=== PATIENT | female | born 1990 | race Caucasian/White ===

== ENCOUNTER 2017-08-24 15:53 | Emergency (ER) | payer OTHER ==
[~2017-08-24] VITALS: Ht 165.1 cm; Wt 61.2 kg
[~2017-08-24 15:53] MED LIST: AMOXICILLIN 50500 MG PO; AMOXICILLIN500 M1 PO; FLAGYL500 MG PO; FOLIC ACID1 MG PO; IBUPROFEN 600600 M1 PO; IBUPROFEN 800800 MG PO; KEFLEX500 M1 PO; KEFLEX500 MG PO; MACROBID 100 M100 M1 PO; MEDROLDOSEPACK PO; NOHOMEMEDICATIONS; NORCO 5-325 TA1 EACH PO; ONDANSETRON HCL4 M2 PO; PRENATAL; PROAIR RESPICL90 MCG IH; PROAIR RESPICL90 MCG INH; PROGESTER VG; PROMETHAZINE V473 ML PO; PROMETHAZINE-D120 ML PO; TESSALON PERLE100 MG PO; UNICOMPLEX M TA1 TA1 PO; VENTOLIN HFA 1818 GM INH; ZOFRAN ODT4 MG PO; ZOFRAN4 MG PO; ZPAK PO
[2017-08-24] MEDS ORDERED: NOHOMEMEDICATIONS (16:14)
[2017-08-24 16:17] LABS: URINE BILIRUBIN NEGATIVE (Negative); URINE BLOOD 2+ (Negative); URINE CLARITY CLEAR; URINE COLOR YELLOW; URINE GLUCOSE-RANDOM NEGATIVE (Negative); URINE KETONES NEGATIVE (Negative); URINE LEUKOCYTES-REFLEX 1+ (Negative); URINE NITRITE-REFLEX NEGATIVE (Negative); URINE PROTEIN NEGATIVE (Negative); URINE UROBILINOGEN 0.2 E.U./dl (0.2-1.0)
[2017-08-24 16:24] LABS: CASTS None Seen /LPF (None Seen); CRYSTALS None Seen /LPF (None Seen); MUCUS 0-3 Light strn/LPF (None Seen); SQUAMOUS >10 Many /LPF (0-3)
[2017-08-24 16:25] LABS: BACTERIA-REFLEX 1-9 Few /HPF (None Seen); URINE RBC 0-2 Rare /HPF (0-2); URINE WBC-REFLEX 0-5 Rare /HPF (0-5)
[2017-08-24 16:28] LABS: ABSOLUTE BASOPHILS 0.1 thou/uL (0.0-0.2); ABSOLUTE EOSINOPHILS 0.1 thou/uL (0.0-0.7); ABSOLUTE LYMPHOCYTES 2.5 thou/uL (0.8-5.3); ABSOLUTE MONOCYTES 0.3 thou/uL (0.0-1.2); ABSOLUTE NEUTROPHILS 4.1 thou/uL (1.6-8.1); BASOPHILS 1.2 %; EOSINOPHILS 1.1 %; HEMOGLOBIN 15.2 gm/dL (12.0-15.0); LYMPHOCYTES 35.3 %; MCHC 32.4 g/dL (28.0-37.0); MCV 89.3 fL (80.0-100.0); MONOCYTES 4.2 %; MPV 8.4 fl. (7.2-11.1); NUCLEATED RBCS 0 /100WBC; PLATELET COUNT* 270 thou/uL (150-400); POLYS 58.2 %; RBC 5.26 mil/uL (4.20-5.00); RDW-CV 13.3 % (10.5-14.5); WBC 7.1 thou/uL (4.0-11.0)
[2017-08-24 16:35] LABS: CALCIUM 9.3 mg/dL (8.5-10.1); CREATININE 0.8 mg/dL (0.6-1.3); POTASSIUM 3.7 mmol/L (3.5-5.1)
[2017-08-24 16:39] LABS: ALBUMIN 4.1 g/dL (3.4-5.0); TOTAL BILIRUBIN 0.3 mg/dL (<0.1-1.0); TOTAL PROTEIN 7.6 g/dL (6.4-8.2)
[2017-08-24] MEDS ORDERED: VISTARIL 25 MG25 M1 PO (17:05)
[2017-08-24] MEDS ORDERED: ZOFRAN ODT4 MG PO (17:05)
[2017-08-24 17:20] VITALS: BP 103/72
== END 2017-08-24 17:27 | disposition home or self-care (01) ==
LOC: M.ERS 15:53
PROVIDERS: Nurse Practitioner Family
DX: R11.2 Nausea with vomiting, unspecified (principal); F41.9 Anxiety disorder, unspecified; F31.9 Bipolar disorder, unspecified; Z86.2 Personal history of diseases of the blood and blood-forming organs and certain disorders involving the immune mechanism; Z98.890 Other specified postprocedural states; Z91.040 Latex allergy status; Z91.013 Allergy to seafood

== ENCOUNTER 2017-10-15 17:52 | Emergency (ER) | payer OTHER ==
[~2017-10-15] VITALS: Ht 165.1 cm; Wt 59.0 kg
[~2017-10-15 17:52] MED LIST changes: +VISTARIL 25 MG25 M1 PO
[2017-10-15] MEDS ORDERED: PRENATAL 19 CH1 EAC1 PO (18:12)
[2017-10-15] MEDS ORDERED: TRAMADOL 50 MG50 MG PO (18:47)
[2017-10-15 19:16] VITALS: BP 124/65
== END 2017-10-15 19:17 | disposition home or self-care (01) ==
LOC: M.ERS 17:52
DX: S93.692A Other sprain of left foot, initial encounter (principal); F41.9 Anxiety disorder, unspecified; F31.9 Bipolar disorder, unspecified; F17.200 Nicotine dependence, unspecified, uncomplicated; Z86.2 Personal history of diseases of the blood and blood-forming organs and certain disorders involving the immune mechanism; Z98.890 Other specified postprocedural states; Z91.040 Latex allergy status; Z91.013 Allergy to seafood; W22.8XXA Striking against or struck by other objects, initial encounter; Y93.89 Activity, other specified; Y92.89 Other specified places as the place of occurrence of the external cause; Y99.8 Other external cause status

== ENCOUNTER 2017-11-10 09:36 | Emergency (ER) | payer OTHER ==
[~2017-11-10] VITALS: Ht 167.6 cm; Wt 59.0 kg
[~2017-11-10 09:36] MED LIST changes: +PRENATAL 19 CH1 EAC1 PO; +TRAMADOL 50 MG50 MG PO
[2017-11-10 10:03] LABS: URINE BILIRUBIN NEGATIVE (Negative); URINE BLOOD 3+ (Negative); URINE CLARITY CLEAR; URINE COLOR YELLOW; URINE GLUCOSE-RANDOM NEGATIVE (Negative); URINE KETONES NEGATIVE (Negative); URINE LEUKOCYTES-REFLEX 1+ (Negative); URINE NITRITE-REFLEX NEGATIVE (Negative); URINE PROTEIN NEGATIVE (Negative); URINE UROBILINOGEN 0.2 E.U./dl (0.2-1.0)
[2017-11-10 10:09] LABS: MUCUS None Seen strn/LPF (None Seen); SQUAMOUS >10 Many /LPF (0-3); URINE RBC >20 Many /HPF (0-2); URINE WBC-REFLEX 6-15 Few /HPF (0-5)
[2017-11-10 10:10] LABS: CASTS None Seen /LPF (None Seen); CRYSTALS None Seen /LPF (None Seen)
[2017-11-10 10:51] LABS: ABSOLUTE BASOPHILS 0.1 thou/uL (0.0-0.2); ABSOLUTE EOSINOPHILS 0.1 thou/uL (0.0-0.7); ABSOLUTE LYMPHOCYTES 2.1 thou/uL (0.8-5.3); ABSOLUTE MONOCYTES 0.3 thou/uL (0.0-1.2); BASOPHILS 1.2 %; EOSINOPHILS 1.7 %; HEMATOCRIT 41.9 % (37.0-47.0); HEMOGLOBIN 14.3 gm/dL (12.0-15.0); LYMPHOCYTES 37.5 %; MCHC 34.1 g/dL (28.0-37.0); MONOCYTES 6.1 %; MPV 8.2 fl. (7.2-11.1); NUCLEATED RBCS 0 /100WBC; PLATELET COUNT* 254 thou/uL (150-400); POLYS 53.5 %; RBC 4.92 mil/uL (4.20-5.00); RDW-CV 12.7 % (10.5-14.5); WBC 5.6 thou/uL (4.0-11.0)
[2017-11-10 10:54] LABS: CALCIUM 9.3 mg/dL (8.5-10.1); CREATININE 0.8 mg/dL (0.6-1.3); POTASSIUM 3.5 mmol/L (3.5-5.1)
[2017-11-10 10:59] LABS: ALBUMIN 3.8 g/dL (3.4-5.0); TOTAL BILIRUBIN 0.4 mg/dL (<0.1-1.0); TOTAL PROTEIN 7.3 g/dL (6.4-8.2)
[2017-11-10 11:14] LABS: INFLUENZA A ANTIGEN None Detected (None Detect); INFLUENZA B ANTIGEN None Detected (None Detect)
[2017-11-10] MEDS ORDERED: BACTRIM DS TAB1 EACH PO (13:26)
[2017-11-10 13:27] VITALS: BP 91/52
--- NOTE | 2017-11-10 16:41 | EKG ---
[place] [address] ELECTROCARDIOGRAM REPORT Name: LAURA ELIAS Room: [facility]#: [id number] Admission: 11/10/17 Attend Phys: Discharge: 11/10/17 Date of : [birth year] Report #: [id number] THIS REPORT FOR: //name// [facility] ED Test Date: 2017-11-10 Test Time: 09:41:49 Pat Name: LAURA ELIAS Department: Room: Gender: F Credit Risk Review Officer: UNKNOWN : 1990 Requested By: Candelaria Duenas Order Number: [id number] MD: Alfonso Abdullahi Measurements Intervals [place] Rate: 113 P: 79 [place]: 125 QRS: 64 QRSD: 88 T: 10 QT: 331 QTc: 454 Interpretive Statements Sinus tachycardia Minimal ST depression, inferior leads Compared to ECG 09/30/2016 13:55:19 ST (T wave) deviation now present Electronically Signed On 11-10-2017 16:41:12 CDT by Alfonso Abdullahi [email or web address] <ELECTRONICALLY SIGNED> By: Alfonso Abdullahi MD, [facility] 11/10/17 1641 0 0 Alfonso Abdullahi MD, FACC /EPI
== END 2017-11-10 13:28 | disposition home or self-care (01) ==
LOC: M.ERS 09:36
PROVIDERS: Personal Emergency Response Attendant
DX: E86.0 Dehydration (principal); N39.0 Urinary tract infection, site not specified; F41.9 Anxiety disorder, unspecified; F31.9 Bipolar disorder, unspecified; F17.210 Nicotine dependence, cigarettes, uncomplicated; Z86.2 Personal history of diseases of the blood and blood-forming organs and certain disorders involving the immune mechanism; Z98.890 Other specified postprocedural states; Z91.040 Latex allergy status; Z91.030 Bee allergy status; Z88.8 Allergy status to other drugs, medicaments and biological substances

== ENCOUNTER 2018-02-15 12:25 | Emergency (ER) | payer OTHER ==
[~2018-02-15] VITALS: Ht 165.1 cm; Wt 59.0 kg
[~2018-02-15 12:25] MED LIST changes: +BACTRIM DS TAB1 EACH PO
[2018-02-15 12:55] LABS: URINE BILIRUBIN NEGATIVE (Negative); URINE BLOOD NEGATIVE (Negative); URINE CLARITY CLEAR; URINE COLOR YELLOW; URINE GLUCOSE-RANDOM NEGATIVE (Negative); URINE KETONES NEGATIVE (Negative); URINE LEUKOCYTES-REFLEX 1+ (Negative); URINE NITRITE-REFLEX NEGATIVE (Negative); URINE PROTEIN NEGATIVE (Negative); URINE UROBILINOGEN 0.2 E.U./dl (0.2-1.0)
[2018-02-15 13:06] LABS: ABSOLUTE BASOPHILS 0.1 thou/uL (0.0-0.2); ABSOLUTE EOSINOPHILS 0.1 thou/uL (0.0-0.7); ABSOLUTE LYMPHOCYTES 2.6 thou/uL (0.8-5.3); ABSOLUTE MONOCYTES 0.5 thou/uL (0.0-1.2); ABSOLUTE NEUTROPHILS 4.5 thou/uL (1.6-8.1); BASOPHILS 0.8 %; EOSINOPHILS 1.1 %; HEMATOCRIT 42.2 % (37.0-47.0); HEMOGLOBIN 14.4 gm/dL (12.0-15.0); LYMPHOCYTES 33.2 %; MCHC 34.1 g/dL (28.0-37.0); MONOCYTES 6.6 %; MPV 7.9 fl. (7.2-11.1); NUCLEATED RBCS 0 /100WBC; PLATELET COUNT* 241 thou/uL (150-400); POLYS 58.3 %; RBC 4.96 mil/uL (4.20-5.00); RDW-CV 12.7 % (10.5-14.5); WBC 7.7 thou/uL (4.0-11.0)
[2018-02-15 13:12] LABS: CREATININE 0.8 mg/dL (0.6-1.3); POTASSIUM 3.4 mmol/L (3.5-5.1)
[2018-02-15 13:16] LABS: BACTERIA-REFLEX 1-9 Few /HPF (None Seen); CASTS None Seen /LPF (None Seen); CRYSTALS None Seen /LPF (None Seen); URINE RBC 3-10 Few /HPF (0-2); URINE WBC-REFLEX 0-5 Rare /HPF (0-5)
[2018-02-15 13:17] LABS: ALBUMIN 3.7 g/dL (3.4-5.0); TOTAL BILIRUBIN 0.3 mg/dL (<0.1-1.0)
[2018-02-15 13:33] LABS: SQUAMOUS 4-10 Moderate /LPF (0-3)
[2018-02-15 14:10] VITALS: BP 103/72
== END 2018-02-15 14:11 | disposition home or self-care (01) ==
LOC: M.ERS 12:25
PROVIDERS: Nurse Practitioner Family
DX: Z32.02 Encounter for pregnancy test, result negative (principal); Z71.1 Person with feared health complaint in whom no diagnosis is made; F31.9 Bipolar disorder, unspecified; F41.9 Anxiety disorder, unspecified; F17.210 Nicotine dependence, cigarettes, uncomplicated; Z91.040 Latex allergy status; Z91.030 Bee allergy status; Z91.018 Allergy to other foods

== ENCOUNTER 2018-09-29 12:15 | Emergency (ER) | payer OTHER ==
[~2018-09-29] VITALS: Ht 165.1 cm; Wt 65.8 kg
[2018-09-29 12:51] LABS: URINE BILIRUBIN NEGATIVE (Negative); URINE BLOOD NEGATIVE (Negative); URINE CLARITY CLEAR; URINE COLOR YELLOW; URINE GLUCOSE-RANDOM NEGATIVE (Negative); URINE KETONES NEGATIVE (Negative); URINE LEUKOCYTES-REFLEX NEGATIVE (Negative); URINE NITRITE-REFLEX NEGATIVE (Negative); URINE PROTEIN NEGATIVE (Negative); URINE SPECIFIC GRAVITY 1.015 (1.005-1.030); URINE UROBILINOGEN 0.2 E.U./dl (0.2-1.0)
[2018-09-29 12:51] LABS: ABSOLUTE BASOPHILS 0.1 thou/uL (0.0-0.2); ABSOLUTE EOSINOPHILS 0.1 thou/uL (0.0-0.7); ABSOLUTE LYMPHOCYTES 2.1 thou/uL (0.8-5.3); ABSOLUTE MONOCYTES 0.4 thou/uL (0.0-1.2); ABSOLUTE NEUTROPHILS 5.2 thou/uL (1.6-8.1); EOSINOPHILS 0.9 %; HEMATOCRIT 43.5 % (37.0-47.0); HEMOGLOBIN 14.9 gm/dL (12.0-15.0); LYMPHOCYTES 26.7 %; MCH 28.7 pg (26.0-34.0); MCHC 34.2 g/dL (28.0-37.0); MCV 83.8 fL (80.0-100.0); MONOCYTES 4.8 %; MPV 8.3 fl. (7.2-11.1); NUCLEATED RBCS 0 /100WBC; PLATELET COUNT* 270 thou/uL (150-400); POLYS 66.6 %; RDW-CV 12.8 % (10.5-14.5); WBC 7.9 thou/uL (4.0-11.0)
[2018-09-29 12:59] LABS: APTT 28.5 Seconds (25.0-31.3); PROTIME 10.1 Seconds (9.20-11.50)
[2018-09-29 13:02] LABS: ALBUMIN 4.2 g/dL (3.4-5.0); CALCIUM 9.5 mg/dL (8.5-10.1); CREATININE 0.9 mg/dL (0.6-1.3); POTASSIUM 3.6 mmol/L (3.5-5.1); TOTAL BILIRUBIN 0.4 mg/dL (<0.1-1.0)
[2018-09-29] MEDS ORDERED: ONDANSETRON HCL4 M2 PO (14:20)
[2018-09-29] MEDS ORDERED: OMEPRAZOLE 20 M20 M1 PO (14:21)
[2018-09-29 14:41] VITALS: BP 119/70
== END 2018-09-29 14:41 | disposition home or self-care (01) ==
LOC: M.ERS 12:15
PROVIDERS: Nurse Practitioner Family
DX: R10.32 Left lower quadrant pain (principal); R11.2 Nausea with vomiting, unspecified; F41.9 Anxiety disorder, unspecified; F31.9 Bipolar disorder, unspecified; F17.210 Nicotine dependence, cigarettes, uncomplicated; Z86.2 Personal history of diseases of the blood and blood-forming organs and certain disorders involving the immune mechanism; Z91.040 Latex allergy status; Z91.030 Bee allergy status; Z91.018 Allergy to other foods; Z88.8 Allergy status to other drugs, medicaments and biological substances; Z98.890 Other specified postprocedural states

== ENCOUNTER 2019-04-26 09:30 | Emergency (ER) | payer OTHER ==
[~2019-04-26] VITALS: Ht 165.1 cm; Wt 70.8 kg
[~2019-04-26 09:30] MED LIST changes: +OMEPRAZOLE 20 M20 M1 PO
[2019-04-26 10:25] LABS: URINE BILIRUBIN NEGATIVE (Negative); URINE BLOOD NEGATIVE (Negative); URINE CLARITY CLEAR; URINE COLOR YELLOW; URINE GLUCOSE-RANDOM NEGATIVE (Negative); URINE KETONES NEGATIVE (Negative); URINE LEUKOCYTES-REFLEX NEGATIVE (Negative); URINE NITRITE-REFLEX NEGATIVE (Negative); URINE PROTEIN NEGATIVE (Negative); URINE SPECIFIC GRAVITY 1.015 (1.005-1.030); URINE UROBILINOGEN 0.2 E.U./dl (0.2-1.0)
[2019-04-26 10:46] LABS: AMP/METHAMP Negative (Negative); BARBITURATES Negative (Negative); BENZODIAZEPINES Negative (Negative); COCAINE Negative (Negative); METHADONE Negative (Negative); OPIATES Negative (Negative); PCP Negative (Negative); THC POSITIVE (Negative)
[2019-04-26 10:56] LABS: ABSOLUTE BASOPHILS 0.1 thou/uL (0.0-0.2); ABSOLUTE EOSINOPHILS 0.1 thou/uL (0.0-0.7); ABSOLUTE LYMPHOCYTES 2.2 thou/uL (0.8-5.3); ABSOLUTE MONOCYTES 0.4 thou/uL (0.0-1.2); BASOPHILS 1.5 %; EOSINOPHILS 2.2 %; HEMATOCRIT 41.6 % (37.0-47.0); HEMOGLOBIN 14.3 gm/dL (12.0-15.0); LYMPHOCYTES 38.2 %; MCHC 34.4 g/dL (28.0-37.0); MCV 84.1 fL (80.0-100.0); MONOCYTES 6.5 %; MPV 7.8 fl. (7.2-11.1); NUCLEATED RBCS 0 /100WBC; PLATELET COUNT* 230 thou/uL (150-400); POLYS 51.6 %; RBC 4.94 mil/uL (4.20-5.00); RDW-CV 12.6 % (10.5-14.5); WBC 5.7 thou/uL (4.0-11.0)
[2019-04-26 11:27] LABS: CALCIUM 8.8 mg/dL (8.5-10.1); CREATININE 0.8 mg/dL (0.6-1.3); POTASSIUM 4.3 mmol/L (3.5-5.1)
[2019-04-26 11:29] LABS: ALBUMIN 3.6 g/dL (3.4-5.0); TOTAL BILIRUBIN 0.2 mg/dL (<0.1-1.0); TOTAL PROTEIN 6.7 g/dL (6.4-8.2)
[2019-04-26] MEDS ORDERED: OMEPRAZOLE 20 M20 M1 PO (12:32)
[2019-04-26] MEDS ORDERED: PEPCID20 MG PO (12:32)
[2019-04-26 12:48] VITALS: BP 121/80
--- NOTE | 2019-04-26 16:57 | EKG ---
[place] [address] ELECTROCARDIOGRAM REPORT Name: LAURA ELIAS Room: [facility]#: [id number] Admission: 04/26/19 Attend Phys: Discharge: 04/26/19 Date of : [birth year] Report #: [id number] THIS REPORT FOR: //name// [facility] ED Test Date: 2019-04-26 Test Time: 11:20:12 Pat Name: LAURA ELIAS Department: Room: Gender: F [employer]: : 1990 Requested By: Watson Burleson Order Number: [id number] MD: Alfonso Abdullaih Measurements Intervals [place] Rate: 78 P: 69 NC: 130 QRS: 61 QRSD: 84 T: 33 QT: 379 QTc: 432 Interpretive Statements Sinus rhythm Compared to ECG 11/10/2017 09:41:49 Sinus tachycardia no longer present ST (T wave) deviation no longer present Electronically Signed On 04-26-2019 16:57:02 CDT by Alfonso Abdullahi [email or web address] <ELECTRONICALLY SIGNED> By: Alfonso Abdullahi MD, [facility] 04/26/19 1657 1120 1120 Alfonso Abdullahi MD, FAC /EPI
== END 2019-04-26 12:50 | disposition home or self-care (01) ==
LOC: M.ERS 09:30
PROVIDERS: Physician Assistant
DX: R11.2 Nausea with vomiting, unspecified (principal); R55 Syncope and collapse; F31.9 Bipolar disorder, unspecified; F41.9 Anxiety disorder, unspecified; F17.210 Nicotine dependence, cigarettes, uncomplicated; Z91.040 Latex allergy status; Z88.8 Allergy status to other drugs, medicaments and biological substances; Z91.030 Bee allergy status; Z98.890 Other specified postprocedural states; Z98.51 Tubal ligation status; Z86.2 Personal history of diseases of the blood and blood-forming organs and certain disorders involving the immune mechanism; Z79.899 Other long term (current) drug therapy

== ENCOUNTER 2020-07-25 11:36 | Emergency (ER) | payer OTHER ==
[~2020-07-25] VITALS: Ht 165.1 cm; Wt 62.6 kg
[~2020-07-25 11:36] MED LIST changes: +PEPCID20 MG PO
[2020-07-25] MEDS ORDERED: ZOFRAN ODT4 MG DISSOLVE (12:04)
[2020-07-25 12:23] LABS: INFLUENZA A ANTIGEN Negative (Negative); INFLUENZA B ANTIGEN Negative (Negative)
[2020-07-25] MEDS ORDERED: ZPAK PO (12:30)
[2020-07-25 12:40] VITALS: BP 101/69
== END 2020-07-25 12:40 | disposition home or self-care (01) ==
LOC: M.ERS 11:36
PROVIDERS: Emergency Medicine Emergency Medical Services
DX: U07.1 COVID-19 (principal); F17.210 Nicotine dependence, cigarettes, uncomplicated; Z91.040 Latex allergy status; Z88.8 Allergy status to other drugs, medicaments and biological substances; Z91.030 Bee allergy status; Z91.018 Allergy to other foods; Z98.890 Other specified postprocedural states; Z98.51 Tubal ligation status; Z86.2 Personal history of diseases of the blood and blood-forming organs and certain disorders involving the immune mechanism

== ENCOUNTER 2020-08-20 21:23 | Emergency (ER) | payer OTHER ==
[~2020-08-20] VITALS: Ht 165.1 cm; Wt 61.2 kg
[~2020-08-20 21:23] MED LIST changes: +ZOFRAN ODT4 MG DISSOLVE
[2020-08-20 21:53] LABS: HEMATOCRIT 40.9 % (37.0-47.0); HEMOGLOBIN 13.6 gm/dL (12.0-15.0); MCH 28.6 pg (26.0-34.0); MCHC 33.1 g/dL (28.0-37.0); MCV 86.2 fL (80.0-100.0); MPV 7.9 fl. (7.2-11.1); RBC 4.74 mil/uL (4.20-5.00); RDW-CV 12.5 % (10.5-14.5); WBC 9.3 thou/uL (4.0-11.0)
[2020-08-20 21:55] LABS: URINE BLOOD 3+ (Negative); URINE CLARITY CLOUDY; URINE COLOR RED; URINE GLUCOSE-RANDOM NEGATIVE (Negative); URINE KETONES NEGATIVE (Negative); URINE LEUKOCYTES-REFLEX NEGATIVE (Negative); URINE NITRITE-REFLEX NEGATIVE (Negative); URINE PROTEIN 2+ (Negative); URINE SPECIFIC GRAVITY >= 1.030 (1.005-1.030); URINE UROBILINOGEN 0.2 E.U./dl (0.2-1.0)
[2020-08-20 21:56] LABS: URINE BILIRUBIN 1+ (Negative)
[2020-08-20 21:58] LABS: ICTOTEST (BILI CONFIRMATORY) Negative (Negative)
[2020-08-20 22:05] LABS: SQUAMOUS >10 Many /LPF (0-3); URINE RBC >20 Many /HPF (0-2)
[2020-08-20 22:06] LABS: MUCUS 0-3 Light strn/LPF (None Seen)
[2020-08-20 22:07] LABS: BACTERIA-REFLEX None Seen /HPF (None Seen); CASTS None Seen /LPF (None Seen); CRYSTALS None Seen /LPF (None Seen)
[2020-08-20 22:08] LABS: URINE WBC-REFLEX None Seen /HPF (0-5)
[2020-08-20] MEDS ORDERED: NAPROSYN500 MG PO (22:14)
[2020-08-20 22:19] VITALS: BP 110/80
== END 2020-08-20 22:19 | disposition home or self-care (01) ==
LOC: M.ERS 21:23
PROVIDERS: Personal Emergency Response Attendant
DX: N93.8 Other specified abnormal uterine and vaginal bleeding (principal); F17.210 Nicotine dependence, cigarettes, uncomplicated; Z88.8 Allergy status to other drugs, medicaments and biological substances; Z91.018 Allergy to other foods; Z91.040 Latex allergy status; Z91.030 Bee allergy status

== ENCOUNTER 2020-12-20 20:37 | Emergency (ER) | payer OTHER ==
[~2020-12-20] VITALS: Ht 165.1 cm; Wt 65.8 kg
[~2020-12-20 20:37] MED LIST changes: +NAPROSYN500 MG PO
[2020-12-20 20:52] LABS: URINE BILIRUBIN NEGATIVE (Negative); URINE BLOOD 3+ (Negative); URINE CLARITY SL CLOUDY; URINE COLOR YELLOW; URINE GLUCOSE-RANDOM NEGATIVE (Negative); URINE KETONES NEGATIVE (Negative); URINE NITRITE-REFLEX NEGATIVE (Negative); URINE PROTEIN 2+ (Negative); URINE SPECIFIC GRAVITY 1.025 (1.005-1.030); URINE UROBILINOGEN 0.2 E.U./dl (0.2-1.0)
[2020-12-20 20:53] LABS: URINE LEUKOCYTES-REFLEX 2+ (Negative)
[2020-12-20 21:00] LABS: CASTS None Seen /LPF (None Seen); CRYSTALS None Seen /LPF (None Seen); MUCUS 4-6 Moderate strn/LPF (None Seen); SQUAMOUS 0-3 Few /LPF (0-3); URINE RBC >20 Many /HPF (0-2); URINE WBC-REFLEX >25 Many /HPF (0-5)
[2020-12-20 21:31] LABS: ABSOLUTE BASOPHILS 0.1 thou/uL (0.0-0.2); ABSOLUTE EOSINOPHILS 0.2 thou/uL (0.0-0.7); ABSOLUTE LYMPHOCYTES 2.7 thou/uL (0.8-5.3); ABSOLUTE MONOCYTES 0.7 thou/uL (0.0-1.2); ABSOLUTE NEUTROPHILS 9.4 thou/uL (1.6-8.1); BASOPHILS 0.7 %; EOSINOPHILS 1.9 %; HEMATOCRIT 39.7 % (37.0-47.0); HEMOGLOBIN 13.4 gm/dL (12.0-15.0); LYMPHOCYTES 20.4 %; MCH 28.6 pg (26.0-34.0); MCHC 33.6 g/dL (28.0-37.0); MONOCYTES 5.5 %; MPV 7.5 fl. (7.2-11.1); NUCLEATED RBCS 0 /100WBC; PLATELET COUNT* 262 thou/uL (150-400); POLYS 71.5 %; RBC 4.68 mil/uL (4.20-5.00); RDW-CV 12.3 % (10.5-14.5); WBC 13.2 thou/uL (4.0-11.0)
[2020-12-20 21:39] LABS: CALCIUM 8.7 mg/dL (8.5-10.1); CREATININE 0.8 mg/dL (0.6-1.3); POTASSIUM 3.6 mmol/L (3.5-5.1)
[2020-12-20 21:43] LABS: ALBUMIN 3.6 g/dL (3.4-5.0); TOTAL BILIRUBIN 0.3 mg/dL (<0.1-1.0)
[2020-12-20] MEDS ORDERED: PYRIDIUM100 M1 PO (21:57)
[2020-12-20] MEDS ORDERED: NORCO5 PO (21:57)
[2020-12-20] MEDS ORDERED: CEFDINIR300 MG PO (21:57)
[2020-12-20] MEDS ORDERED: IBUPROFEN 800800 M1 PO (21:57)
[2020-12-20 22:25] VITALS: BP 131/83
== END 2020-12-20 22:25 | disposition home or self-care (01) ==
LOC: M.ERS 20:37
PROVIDERS: Emergency Medicine; Nurse Practitioner Family
DX: N39.0 Urinary tract infection, site not specified (principal); F17.210 Nicotine dependence, cigarettes, uncomplicated; F12.90 Cannabis use, unspecified, uncomplicated; Z91.040 Latex allergy status; Z91.030 Bee allergy status; Z88.8 Allergy status to other drugs, medicaments and biological substances; Z98.890 Other specified postprocedural states; Z98.51 Tubal ligation status

== ENCOUNTER 2021-01-30 17:20 | Emergency (ER) | payer OTHER ==
[~2021-01-30] VITALS: Ht 165.1 cm; Wt 65.8 kg
[~2021-01-30 17:20] MED LIST changes: +CEFDINIR300 MG PO; +IBUPROFEN 800800 M1 PO; +NORCO5 PO; +PYRIDIUM100 M1 PO
[2021-01-30 18:52] VITALS: BP 110/82
== END 2021-01-30 18:53 | disposition home or self-care (01) ==
LOC: M.ERS 17:20
DX: B34.9 Viral infection, unspecified (principal); Z20.822 Contact with and (suspected) exposure to COVID-19; F17.210 Nicotine dependence, cigarettes, uncomplicated; Z91.040 Latex allergy status; Z88.8 Allergy status to other drugs, medicaments and biological substances; Z98.51 Tubal ligation status; Z79.899 Other long term (current) drug therapy; Z86.2 Personal history of diseases of the blood and blood-forming organs and certain disorders involving the immune mechanism

== ENCOUNTER 2021-08-08 08:09 | Emergency (ER) | payer OTHER ==
[~2021-08-08] VITALS: Ht 165.1 cm; Wt 65.8 kg
[2021-08-08 08:51] VITALS: BP 101/63
== END 2021-08-08 10:32 | disposition left against medical advice (07) ==
LOC: M.ERS 08:09
DX: R06.02 Shortness of breath (principal); Z53.21 Procedure and treatment not carried out due to patient leaving prior to being seen by health care provider